=== PATIENT | female | born 1945 | race Caucasian/White ===

== ENCOUNTER → 2018-06-26 08:31 | Outpatient (CLI) | payer MEDICARE, OTHER, SELFPAY ==
[2018-06-26 09:42] LABS: BUN Creatinine Ratio 35.7 (6-22); Blood Urea Nitrogen 25 mg/dL (7-17); Calcium 9.4 mg/dL (8.4-10.2); Carbon Dioxide 29 mmol/L (22-32); Chloride 98 mmol/L (98-107); Cholesterol 243 mg/dL (140-199); Estimated Glomerular Filt Rate > 60.0 mL/min (>60); Glucose 87 mg/dL (80-110); HEMOLYSIS < 15 (0-50); Sodium 138 mmol/L (137-145); Triglycerides 58 mg/dL (35-150)
[2018-06-26 09:50] LABS: HDL Cholesterol 109 mg/dL (40-60); LDL Cholesterol Calculated 122 mg/dL (<100)
== END ==
PROVIDERS: PCP Internal Medicine; Visit Provider Internal Medicine
DX: Z00.00 Encounter for general adult medical examination without abnormal findings (principal); E78.5 Hyperlipidemia, unspecified
CPT/HCPCS: 36415; 80048; 80061

== ENCOUNTER → 2018-08-15 08:10 | Outpatient (CLI) | payer MEDICARE, OTHER, SELFPAY ==
--- NOTE | 2018-08-15 | DI.MRI.S_ITS ---
PROCEDURE: MR LUMBAR SPINE WO/W CON INDICATIONS: SOFT TISSUE MASS ON LOWER BACK TECHNIQUE: Noncontrast sagittal T1 spin echo and T2 fast spin echo, sagittal STIR, axial T1 and T2 fast spin echo through the lumbar spine. In cases with scoliosis, additional coronal T2 fast spin echo may be performed. After the administration of contrast, sagittal and axial T1 spin echo with fat saturation through the lumbar spine. COMPARISON: None. FINDINGS: Image quality: There are motion artifacts. Alignment and curvature: There is grade 1 anterolisthesis at L4-L5 and grade 1 retrolisthesis at L5-S1. Marrow: Degenerative endplate signal changes are present. No acute vertebral body compression fractures. No suspicious marrow enhancement. Spinal cord: Conus medullaris terminates at the L1-L2 level. Visualized spinal cord demonstrates normal signal, without suspicious enhancement. Paraspinous soft tissues: No mass is identified in the area of interest deep to the skin marker. No paravertebral masses or abnormal enhancement. There is extrarenal pelvis or hydronephrosis in left kidney. L1-L2: Normal appearance. L2-L3: Mild loss of disc height. Moderate disc desiccation. There is diffuse posterior disc bulge and disc osteophyte complex. The central canal is mildly narrowed. Moderate to severe bilateral foraminal stenosis. L3-L4: Mild loss of disc height. Moderate disc desiccation. There is diffuse posterior disc bulge and disc osteophyte complex. Mild bilateral facet arthropathy and moderate to severe hypertrophy of ligamentum flavum. The central canal is moderately narrowed. Moderate to severe bilateral foraminal stenosis. L4-L5: Mild loss of disc height. Moderate disc desiccation. There is diffuse posterior disc bulge and disc osteophyte complex. Superimposed posterior annular fissure. Severe bilateral facet arthropathy. The central canal is severely narrowed. Severe bilateral foraminal stenosis. L5-S1: Severe loss of disc height and disc desiccation. There is diffuse posterior disc bulge and disc extrusion. Moderate left and mild right facet arthropathy. The central canal is moderately narrowed. Moderate bilateral foraminal stenosis. IMPRESSION: 1. No soft tissue mass is identified deep to the skin marker in the area of interest. 2. Multilevel degenerative disc disease and facet arthropathy as described. 3. Multiple central canal stenosis as described, severe at L4-L5, moderate at L3-L4 and L5-S1. 4. Multilevel foraminal stenosis as described, severe at L4-L5 bilaterally, moderate to severe at L2-L3 bilaterally and L3-L4 bilaterally. 5. Extrarenal pelvis versus hydronephrosis in left kidney. Renal ultrasound is suggested for followup evaluation. Dictated by: Tatiana Ragsdale M.D. on 08/15/2018 at 10:34 Approved by: Tatiana Ragsdale M.D. on 08/15/2018 at 13:13
== END ==
PROVIDERS: PCP Internal Medicine; Visit Provider Internal Medicine
DX: R22.2 Localized swelling, mass and lump, trunk (principal); M51.36 Other intervertebral disc degeneration, lumbar region; M51.37 Other intervertebral disc degeneration, lumbosacral region; M47.816 Spondylosis without myelopathy or radiculopathy, lumbar region; M47.817 Spondylosis without myelopathy or radiculopathy, lumbosacral region; M48.061 Spinal stenosis, lumbar region without neurogenic claudication; M48.07 Spinal stenosis, lumbosacral region
CPT/HCPCS: 72158; A9579

== ENCOUNTER → 2018-08-25 12:07 | Outpatient (CLI) | payer MEDICARE, OTHER, SELFPAY ==
--- NOTE | 2018-08-25 | DI.US.S_ITS ---
PROCEDURE: US RENAL COMPLETE INDICATIONS: HYDRONEPHROSIS TECHNIQUE: Real-time scanning was performed of the kidneys and bladder, with image documentation. COMPARISON: [facility], MR, MR LUMBAR SPINE WO/W CON, 08/15/2018, 8:41. FINDINGS: Kidneys: Kidneys are normal in size. Right kidney measures 9.2 cm long; left kidney measures 12.5 cm long. Right renal cortical thickness is 1 cm; left renal cortical thickness is 13 cm. Renal cortical echotexture is normal. Several left-sided stones are seen, with the largest measuring 7 mm AP. There is a mild amount of left-sided hydronephrosis is seen, which are to resolves postvoid. No right-sided hydronephrosis. No suspicious solid mass lesions. A 1.7 cm simple appearing right renal cyst is incidentally noted. Bladder: Pre-void bladder volume is 214 mL. Post-void residual is 34 mL. Pre-void images demonstrate no intraluminal masses or stones. On pre-void images, both ureteral jets are noted with color Doppler interrogation. (Of note, ureteral jets may not be detectable in up to 25% of cases due to insufficient differences in specific gravity between ureteral and bladder urine). Miscellaneous: No free pelvic fluid. IMPRESSION: Mild left-sided hydronephrosis, which largely resolves postvoid. Several left-sided kidney stones are seen, with the largest superiorly measuring 7 mm. Moderate postvoid residual (34 cc). 1.7 cm right renal cyst incidentally noted. Dictated by: Tim Eddy M.D. on 08/25/2018 at 12:22 Approved by: Tim Eddy M.D. on 08/25/2018 at 12:25
== END ==
PROVIDERS: PCP Internal Medicine; Visit Provider Internal Medicine
DX: N13.30 Unspecified hydronephrosis (principal); N20.0 Calculus of kidney; N28.1 Cyst of kidney, acquired
CPT/HCPCS: 76770

== ENCOUNTER → 2018-12-11 08:23 | Outpatient (CLI) | payer MEDICARE, OTHER, SELFPAY ==
[2018-12-11 09:46] LABS: Alanine Aminotransferase 21 IU/L (9-52); Aspartate Aminotransferase 29 IU/L (14-36); Cholesterol 172 mg/dL (140-199); HDL Cholesterol 100 mg/dL (40-60); LDL Cholesterol Calculated 66 mg/dL (<100); Triglycerides 32 mg/dL (35-150)
== END ==
PROVIDERS: PCP Internal Medicine; Visit Provider Internal Medicine
DX: E78.5 Hyperlipidemia, unspecified (principal)
CPT/HCPCS: 36415; 80061; 84450; 84460

== ENCOUNTER 2020-01-09 22:43 | Emergency (ER) | payer MEDICARE, OTHER, SELFPAY ==
[2020-01-09 22:50] VITALS: BP 124/58; PULSE 71; RESP 17; TEMP 36.3; O2SAT 98; BMI 21.6
--- NOTE | 2020-01-09 22:50 | ED_ITS ---
HPI - Fall General Chief Complaint: Fall Stated Complaint: Syncope Time Seen by Provider: 01/09/20 22:43 Source: patient and EMS Mode of arrival: EMS Limitations: altered mental status History of Present Illness HPI Narrative: 74-year-old female former smoker with history of daily alcohol abuse presents by EMS for evaluation of a ground level fall with head injury. She does not take any blood thinners. She may have lost consciousness, she does not have full. She has had no vomiting but admits to nausea. She denies any chest pain or shortness of breath. She denies any abdominal pain or change in bowel habits. She has had no recent illness, new medications or dietary change. She does admit to some neck pain which seems to be worse with palpation or motion. She was placed in a C-collar prior to transport. MD complaint: fall Onset (ago): minute(s) Fall from: standing Fall witnessed: yes, by family Place fall occurred: home Loss of consciousness: unsure Prolonged down time: no Symptoms prior to fall: none Context: tripped/slipped and alcohol use Location of injury: head and neck Severity: moderate Associated symptoms (after fall): headache and neck pain Related Data Home Medications Medication Instructions Recorded Confirmed sertraline [Zoloft] 50 mg PO QDAY #0 09/16/10 [PROBIOTIC] 1 PO QDAY #0 07/17/17 calcium citrate 250 mg PO BID #0 07/17/17 cholecalciferol (vitamin D3) 2,000 unit PO BID #0 07/17/17 [Vitamin D3] lutein 6 mg PO EVERY OTHER DAY #0 07/17/17 scopolamine base 1 patch TOPICAL Q72H #0 07/17/17 Previous Rx's Medication Instructions Recorded metronidazole [Flagyl] 500 mg PO TID #42 tab 07/17/17 Allergies Allergy/AdvReac Type Severity Reaction Status Date / Time No Known Drug Allergies Allergy Verified 01/09/20 22:49 Review of Systems Constitutional Constitutional: Denies chills, Denies fatigue, Denies fever(s), Denies frequent falls, Reports headache(s), Denies lethargy and Denies weakness Eyes Eyes: Denies change in vision, Denies eye discharge, Denies irritation and Denies loss of vision ENT Ears, Nose, Mouth, and Throat: Denies change in voice, Denies dizziness, Reports headache(s), Reports neck pain, Denies sore throat and Denies throat swelling Cardiovascular Cardiovascular: Denies chest pain, Denies irregular heart rhythm, Denies lightheadedness, Denies palpitations, Denies dyspnea, Denies dyspnea on exertion and Denies orthopnea Respiratory Respiratory: Denies cough, Denies dyspnea, Denies dyspnea on exertion and Denies wheezing Gastrointestinal Gastrointestinal: Denies abdominal pain, Denies change in bowel habits, Denies diarrhea, Denies nausea and Denies vomiting Musculoskeletal Musculoskeletal: Reports neck pain and Denies numbness Integumentary/Breasts Skin/Breast: Denies pruritus, Denies erythema, Denies rash and Denies wounds Neurologic Neurologic: Denies behavioral changes, Denies confusion, Denies dizziness, Denies frequent falls, Reports headache(s), Denies loss of vision, Denies numbness and Denies weakness Psychiatric Psychiatric: Denies anxiety, Denies behavioral changes, Denies confusion, Denies depression, Denies homicidal ideation and Denies suicidal ideation Endocrine Endocrine: Denies fatigue, Denies flushing and Denies palpitations Hematologic/Lymphatic Hematologic/Lymphatic: Denies easy bruising Allergic/Immunologic Allergic/Immunologic: Denies urticaria, Denies throat swelling and Denies wheezing Patient History Social History Smoking Status: Former smoker Smoking Status: Former smoker alcohol intake frequency: 0-2 drinks per day Substance Use Type: does not use Exam Narrative Exam Narrative: GENERAL: [74] year old patient appears stated age. Well- nourished, well-developed patient, in mild distress. Confused, slow to respond but does so accurately, mild slurring of words HEAD: Laceration on occiput but with minimal active bleeding. No evidence of depressed skull fracture EYES: Pupils equal round and reactive. Extraocular motions intact. No scleral icterus. No injection or drainage. No hyphema ENT: No evidence of bleeding, no nasal septal hematoma. No purulent drainage. Throat without erythema, tonsillar hypertrophy or exudate. Airway patent. NECK: Trachea midline. Tenderness in the midline, no step-offs, crepitance or obvious deformity. CARDIOVASCULAR: Regular rate and rhythm without murmurs, gallops, or rubs. RESPIRATORY: Clear to auscultation. Breath sounds equal bilaterally. No wheezes, rales, or rhonchi. GASTROINTESTINAL: Abdomen soft, non-tender, nondistended. EXTREMITIES: No edema or joint tenderness. BACK: Nontender without deformity or crepitance. No flank tenderness. NEURO: Moving all extremities SKIN: No rash or erythema of visible areas Initial Vital Signs Initial Vital Signs: Vital Signs Temperature 97.4 F L 01/09/20 22:50 Pulse Rate 71 01/09/20 22:50 Respiratory Rate 17 01/09/20 22:50 Blood Pressure 124/58 L 01/09/20 22:50 Pulse Oximetry 98 01/09/20 22:50 Procedures Laceration Repair Laceration 1: Site: scalp Side (If applicable): right Size (cm): 3 Description: linear Depth: simple, single layer Local Anesthetic: lidocaine 1% and with epi Pre-repair: wound explored and irrigated extensively Skin layer closed with: paola Scores GCS Cherri coma scale eye opening: Spontaneous W[place]rop coma scale verbal response: Confused [place] coma scale motor response: Obey commands W[place]rop coma scale total score: 14 Course Orders Ordered: Discontinued Medications Diphtheria/Tetanus/Acell Pertussis (Adacel) 0.5 ml IM .ONCE ONE Stop: 01/09/20 22:48 Last Admin: 01/09/20 23:31 Dose: 0.5 ml Documented by: JAMAAL Sodium Chloride (Normal Saline 0.9%) 1,000 mls @ 125 mls/hr IV CONT JUDITH Last Infusion: 01/10/20 02:52 Dose: 0 mls/hr Documented by: Admin: 01/09/20 23:31 Dose: 125 mls/hr Documented by: JAMAAL Ondansetron HCl (Zofran) 4 mg IV NOW ONE Stop: 01/09/20 23:12 Last Admin: 01/09/20 23:31 Dose: 4 mg Documented by: JAMAAL MDM - Fall Lab Data Result diagrams: 01/09/20 22:30 01/09/20 22:30 Labs: Lab Results 01/09/20 01/09/20 01/10/20 Range/Units 22:30 22:30 00:56 WBC 7.1 (4.5-11.0) X10^3/uL RBC 4.22 (4.0-5.2) X10^6/uL Hgb 13.2 (12.0-16.0) g/dL Hct 39.6 (36-46) % MCV 94.0 (80-100) fL MCH 31.3 (26-34) PG MCHC 33.3 (30-36) % RDW 14.1 (11.6-14.8) % Plt Count 256 (150-400) X10^3/uL Neut % (Auto) 53.8 (50-75) % Lymph % (Auto) 35.1 (25-40) % Grand % (Auto) 8.8 (3-14) % Eos % (Auto) 1.7 L (2-4) % Baso % (Auto) 0.6 (0-2) % Neut # (Auto) 3800 (8798-6050) /uL Lymph # (Auto) 2500 (6353-4786) /uL Grand # (Auto) 600 (0-900) /uL Eos # (Auto) 100 (0-450) /uL Baso # (Auto) 0 (0-100) /uL Sodium 142 (137-145) mmol/L Potassium 3.6 (3.4-5.1) mmol/L Chloride 106 (98-107) mmol/L Carbon Dioxide 26 (22-32) mmol/L BUN 17 (7-17) mg/dL Creatinine 0.86 (0.52-1.04) mg/dL Estimated GFR > 60.0 (>60) mL/min BUN/Creatinine Ratio 19.8 (6-22) Glucose 95 (80-110) mg/dL Calcium 9.7 (8.4-10.2) mg/dL Magnesium 2.2 (1.6-2.3) mg/dL Total Bilirubin 0.5 (0.2-1.3) mg/dL AST 39 H (14-36) IU/L ALT 25 (<35) IU/L Alkaline Phosphatase 88 (38-126) U/L Total Creatine Kinase 79 (30-135) U/L CK-MB (CK-2) TNP CK-MB (CK-2) Rel Index TNP Troponin I < 0.012 (0.01-0.034) ng/mL Total Protein 7.8 (6.3-8.2) g/dL Albumin 4.8 (3.5-5.0) g/dL Globulin 3.0 (1.7-4.1) g/dL Albumin/Globulin Ratio 1.6 (1.0-2.8) Urine RBC 5-10/hpf H (0-5/HPF) Urine WBC None seen (0-5/HPF) Ur Squamous Epith Cells 1-5 /hpf (0-5/HPF) Urine Bacteria None seen (None) Ur Culture Indicated? Cult not indicated Urine Dip Bedside Urine Glucose Negative Bedside Urine Bilirubin - Negative Bedside Urine Ketone - Negative Urine Specific [place] 1.015 Bedside Urine Occult Blood +++ Bedside Urine pH 6.5 Bedside Urine Protein + 30 Bedside Urine Urobilinogen - Negative Bedside Urine Nitrite - Negative Bedside Urine Leukocytes - Negative Esterase Imaging Data CT scan - head: Radiologist's Impression: Chart Viewer Diagnostics DATE TYPE STATUS REF RANGE/AUTHOR Hx 01/09/20 22:49 Eden Ricardo 01/09/20 22:48 Eden Ricardo 08/25/18 00:00 Yen Eddye 08/15/18 00:00 Austyn Ragsdale Elaine D 74, F0 1945 [facility], Main ED 165.1cm 58.967kg BMI: 21.6kg/m? Fall Search Chart No Data to Display NF - Not included in interaction checking ONSET Today 02:53 Sissy Mortensen 74 F 1945 [place] [address] CT Scan Report Signed Patient: Ash Mortensenaine DMR#: [id number] : [id number]:[id number] Age/Sex: 74 / FDate of Service: 01/09/20 Loc: ED Accession Number: [id number] Procedure: CT head/brain wo con Ordering Provider: Jason Carty D.O. PROCEDURE: CT HEAD/BRAIN WO CON INDICATIONS: fall, head injury, chronic etoh, altered TECHNIQUE: Noncontrast 4.5 mm thick angled axial sections acquired from the foramen magnum to the vertex, with coronal and sagittal reformats. For radiation dose reduction, the following was used: automated exposure control, adjustment of mA and/or kV according to patient size. COMPARISON: None. FINDINGS: Image quality: Excellent. CSF spaces: Basal cisterns are patent. No extra-axial fluid collections. The ventricles are symmetric in size and shape. Brain: No intracranial bleeds or masses. There is cerebral volume loss for age, with resultant ventricular and sulcal prominence. There are periventricular and deep white matter chronic small vessel ischemic changes. There is intracranial internal carotid artery atherosclerosis. Skull and face: There is a small right frontal subgaleal hematoma. Calvarium and visualized facial bones appear intact, without suspicious lesions. Sinuses: Visualized sinuses and mastoids are clear. IMPRESSION: 1. No acute intracranial findings. 2. Small right frontal subgaleal hematoma without underlying calvarial abnormality. These findings are concordant with the overnight interpretation. Dictated by: Eden Ricardo M.D. on 01/10/2020 at 7:24 Approved by: Eden Ricardo M.D. on 01/10/2020 at 7:25 CT - cervical spine: Radiologist's Impression: Ash Mortensenaine Levi 74 F 1945 [place] [address] CT Scan Report Signed Patient: Sissy Mortensen DMR#: [id number] : [id number]:[id number] Age/Sex: 74 / FDate of Service: 01/09/20 Loc: ED Accession Number: [id number] Procedure: CT cervical spine wo con Ordering Provider: Jason Carty D.O. PROCEDURE: CT CERVICAL SPINE WO CON INDICATIONS: fall, altered, neck pain TECHNIQUE: Noncontrast 3 mm thick sections acquired from the skull base to the T4 level. Sagittal and coronal reformats were then constructed. For radiation dose reduction, the following was used: automated exposure control, adjustment of mA and/or kV according to patient size. COMPARISON: None. FINDINGS: Image quality: Excellent. Bones: No fractures or dislocations. Moderate degenerative changes are present throughout the cervical spine including intervertebral disc space narrowing and osteophytosis. Visualized superior ribs are intact. Soft tissues: Prevertebral soft tissues are normal in thickness. No paravertebral hematomas. No apical pneumothoraces. IMPRESSION: 1. No acute cervical spine injury. Moderate degenerative changes. These findings are concordant with the overnight interpretation. Dictated by: Eden Ricardo M.D. on 01/10/2020 at 7:17 Approved by: Eden Ricardo M.D. on 01/10/2020 at 7:24 Discharge Plan Departure Patient Disposition: Home Clinical Impression: Laceration of scalp Qualifiers: Encounter type: initial encounter Qualified Code(s): S01.01XA - Laceration without foreign body of scalp, initial encounter Contusion of forehead Qualifiers: Encounter type: initial encounter Qualified Code(s): S00.83XA - Contusion of other part of head, initial encounter Discharge Date/Time: 01/10/20 02:54 Instructions: How to Prevent Falls Activity Restrictions/Additional Instructions: Please keep the wound clean and dry to the best of your ability. Please monitor for signs of infection such as redness to the skin or increasing pain. Have the sutures removed by your doctor in about 7 days. If you are unable to get into your doctor, we would be happy to remove the sutures in that same timeframe. Prescriptions: No Action sertraline [Zoloft] 50 MG tablet 50 mg PO QDAY Qty: 0 RF: 0 calcium citrate 250 MG tablet 250 mg PO BID Qty: 0 RF: 0 cholecalciferol (vitamin D3) [Vitamin D3] 2,000 UNIT capsule 2,000 unit PO BID Qty: 0 RF: 0 lutein 10 mg tablet 6 mg PO EVERY OTHER DAY Qty: 0 RF: 0 [PROBIOTIC] 1 PO QDAY Qty: 0 RF: 0 scopolamine base 1 MG/3 DAYS patch 3 day 1 patch Topical Q72H Qty: 0 RF: 0 metronidazole [Flagyl] 500 MG tablet 500 mg PO TID Qty: 42 RF: 0 Referrals: Danay West MD [Primary Care Provider] -
[2020-01-09 22:54] LABS: Add Manual Diff / Slide Review NO; Basophils Absolute Auto 0 /uL (0-100); Basophils Percent Auto 0.6 % (0-2); Eosinophils Absolute Auto 100 /uL (0-450); Eosinophils Percent Auto 1.7 % (2-4); Hematocrit 39.6 % (36-46); Hemoglobin 13.2 g/dL (12.0-16.0); Lymphocytes Absolute Auto 2500 /uL (1100-4500); Lymphocytes Percent Auto 35.1 % (25-40); Mean Corpuscular HGB Conc 33.3 % (30-36); Mean Corpuscular Hemoglobin 31.3 PG (26-34); Monocytes Absolute Auto 600 /uL (0-900); Monocytes Percent Auto 8.8 % (3-14); Neutrophils Absolute Auto 3800 /uL (1500-7000); Neutrophils Percent Auto 53.8 % (50-75); Platelet Count 256 X10^3/uL (150-400); Red Blood Cell Count 4.22 X10^6/uL (4.0-5.2); Red Cell Distribution Width 14.1 % (11.6-14.8); White Blood Cell Count 7.1 X10^3/uL (4.5-11.0)
[2020-01-09 23:03] LABS: Alanine Aminotransferase 25 IU/L (<35); Albumin 4.8 g/dL (3.5-5.0); Albumin Globulin Ratio 1.6 (1.0-2.8); Alkaline Phosphatase 88 U/L (38-126); Aspartate Aminotransferase 39 IU/L (14-36); BUN Creatinine Ratio 19.8 (6-22); Bilirubin Total 0.5 mg/dL (0.2-1.3); Blood Urea Nitrogen 17 mg/dL (7-17); Calcium 9.7 mg/dL (8.4-10.2); Carbon Dioxide 26 mmol/L (22-32); Chloride 106 mmol/L (98-107); Creatine Kinase 79 U/L (30-135); Estimated Glomerular Filt Rate > 60.0 mL/min (>60); Glucose 95 mg/dL (80-110); HEMOLYSIS 20 (0-50); Magnesium 2.2 mg/dL (1.6-2.3); Potassium 3.6 mmol/L (3.4-5.1); Sodium 142 mmol/L (137-145); Total Protein 7.8 g/dL (6.3-8.2)
[2020-01-09 23:15] LABS: Troponin I < 0.012 ng/mL (0.01-0.034)
[2020-01-09] MEDS: SODIUM CHLORIDE 0.9% 1,000 ML 125 ML IV (23:31)
[2020-01-09] MEDS: TET,DIPH,PERTUSS(ACELL),VAC/PF 0.5 ML SYRINGE IM (23:31)
[2020-01-09] MEDS: ONDANSETRON 4 MG/2 ML INJ IV (23:31)
[2020-01-10 01:14] LABS: Bacteria Urine None Seen
[2020-01-10 01:22] LABS: Culture Indicated Urine Cult Not Indicated; RBC Urine 5-10/HPF (0-5/HPF); Squamous Epithelial Cell Urine 1-5 /HPF (0-5/HPF); WBC Urine None Seen (0-5/HPF)
[2020-01-10 02:53] VITALS: BP 104/55; PULSE 73; RESP 14; TEMP 36.6; O2SAT 97
== END 2020-01-10 02:54 | disposition home or self-care (01) ==
PROVIDERS: Emergency Provider Emergency Medicine; PCP Internal Medicine
DX: S01.01XA Laceration without foreign body of scalp, initial encounter (principal); R51 Headache; M54.2 Cervicalgia; R11.0 Nausea; W18.30XA Fall on same level, unspecified, initial encounter; Z23 Encounter for immunization
CPT/HCPCS: 12002; 70450; 72125; 80053; 81003; 81015; 82550; 82553; 83735; 84484; 85025; 90471; 93005; 93010; 96361; 96374; 99284; 90715; J2405

== ENCOUNTER → 2020-01-18 09:56 | Outpatient (CLI) | payer MEDICARE, OTHER, SELFPAY ==
[2020-01-18 11:14] LABS: Alanine Aminotransferase 18 IU/L (<35); Aspartate Aminotransferase 28 IU/L (14-36); Cholesterol 177 mg/dL (140-199); HDL Cholesterol 93 mg/dL (40-60); LDL Cholesterol Calculated 74 mg/dL (<100); Triglycerides 51 mg/dL (35-150)
== END ==
PROVIDERS: PCP Internal Medicine; Referring Provider Internal Medicine; Visit Provider Internal Medicine
DX: E78.5 Hyperlipidemia, unspecified (principal)
CPT/HCPCS: 36415; 80061; 84450; 84460

== ENCOUNTER → 2020-04-02 10:12 | Outpatient (CLI) | payer MEDICARE, OTHER, SELFPAY ==
[2020-04-02 10:46] LABS: COVID19 -Nasal RAPID Negative (Negative)
== END ==
PROVIDERS: PCP Internal Medicine; Visit Provider Physician Assistant
DX: Z11.59 Encounter for screening for other viral diseases (principal)
CPT/HCPCS: 87635

== ENCOUNTER 2020-04-05 06:02 | Day surgery (SDC) | payer MEDICARE, OTHER, SELFPAY ==
[2020-04-05] MEDS: PROPARACAINE 0.5% OPHTH SOL 2 DROPS EYE-OP (07:10)
[2020-04-05] MEDS: CATARACT EYE COMPOUND (10 DROPS/SYRINGE) 3 DROPS EYE-OP (07:11)
[2020-04-05 07:12] VITALS: BP 135/67; PULSE 69; RESP 16; TEMP 36.9; O2SAT 97; BMI 22.3
--- NOTE | 2020-04-05 07:38 | P.OP_ITS ---
Operative Date/Time/Diagnoses Pre-op diagnosis: Nuclear Cataract Left eye Post-op diagnosis: same Procedure & Clinicians Same procedure as scheduled: Yes Surgeon: Munir Byrd Anesthesia Type: MAC +/- and Sedation Operative Notes Procedure in detail: Patient brought to the operating suite. Tetracaine drops placed in the left eye. Patient was prepped and draped in sterile manner. Wire lid speculum was placed in the eye. Betadine drops were placed on the eye. This was irrigated. Lidocaine jelly was placed on the eye. A paracentesis port was created with a side-port blade. 0.1 mL 1% preservative free lidocaine was injected into the anterior chamber. The anterior chamber was deepened with viscoelastic. 2.6 mm keratome was used to create a temporal clear corneal incision. Cystotome and Utrata forceps were used to create continuous tear capsulorrhexis. Balanced salt solution was used to hydro dissect the nucleus. The phacoemulsification handpiece was inserted and the nucleus was removed using the stop and chop technique. The irrigation aspiration handpiece was inserted and the remaining cortex was removed. Anterior chamber was deepened with viscoe lastic. An Vargas ZCB00 intraocular lens with a power of 18.0 was injected into the capsular bag. Irrigation aspiration handpiece was inserted and the remaining viscoelastic was removed. Incision was hydrated with balanced salt solution and found to be leak free with pressure with Weck-Heather sponges. 0.1 mL Vigamox injected anterior chamber. 0.3 mL Kenalog 10 mg was injected subconjunctivally. Lid speculum was removed. The patient left the operating room in excellent condition. Complications: none Post-operative Condition: stable Disposition: same day surgery
--- NOTE | 2020-04-05 07:38 | PM.PREOP ---
Pre-operative Note Interval Note History & Physical reviewed/Exam performed by Physician: Yes Changes to H&P: No
[2020-04-05] MEDS: TRIAMCINOLONE 50 MG/5 ML VIAL INJ (07:54)
[2020-04-05] MEDS: PHENYLEPHRINE/LIDOCAINE VIAL (OR) 0.2 ML EYE-OP (07:54)
[2020-04-05] MEDS: CHONDROIDTIN/SOD HYALURONATE 1.05 ML SYRINGE INTRAOCULA (07:54)
[2020-04-05] MEDS: MOXIFLOXACIN INJ 5 MG/ML VIAL EYE-OP (07:54)
[2020-04-05] MEDS: TETRACAINE 0.5% OPHTH DROPS 4 ML 2 DROPS EYE-OP (07:55)
[2020-04-05] MEDS: LIDOCAINE JELLY 2% 5 ML 1 APPLIC TOP (07:55)
[2020-04-05] MEDS: BALANCED SALT IRRIG SOLN NO.2 500 ML, EPINEPHrine 1 MG IRR (07:55)
[2020-04-05 08:13] VITALS: BP 126/65; PULSE 55; RESP 18; TEMP 37; O2SAT 99
== END 2020-04-05 08:18 | disposition home or self-care (01) ==
PROVIDERS: PCP Internal Medicine; Referring Provider Internal Medicine; Visit Provider Ophthalmology
PROC: (CPT 66984; principal; 2020-04-05 07:45)
DX: H25.12 Age-related nuclear cataract, left eye (principal); G43.909 Migraine, unspecified, not intractable, without status migrainosus
CPT/HCPCS: 66984; J0171; J2250; J3301

== ENCOUNTER → 2020-04-16 14:41 | Outpatient (CLI) | payer MEDICARE, OTHER, SELFPAY ==
[2020-04-16 16:42] LABS: COVID19 -Nasal RAPID Negative (Negative)
== END ==
PROVIDERS: PCP Internal Medicine; Visit Provider Nurse Practitioner
DX: Z11.59 Encounter for screening for other viral diseases (principal)
CPT/HCPCS: 87635

== ENCOUNTER 2020-04-19 09:24 | Day surgery (SDC) | payer MEDICARE, OTHER, SELFPAY ==
[2020-04-19 10:05] VITALS: BP 115/6; PULSE 69; RESP 12; TEMP 36.7; O2SAT 100; BMI 22.3
[2020-04-19] MEDS: PROPARACAINE 0.5% OPHTH SOL 2 DROPS EYE-OP (10:05)
[2020-04-19] MEDS: CATARACT EYE COMPOUND (10 DROPS/SYRINGE) 3 DROPS EYE-OP (10:15)
--- NOTE | 2020-04-19 11:01 | PM.PREOP ---
Pre-operative Note Interval Note History & Physical reviewed/Exam performed by Physician: Yes Changes to H&P: No
--- NOTE | 2020-04-19 11:01 | PM.OP.1 ---
Operative Date/Time/Diagnoses Pre-op diagnosis: Nuclear cataract right eye Procedure & Clinicians Procedure: Cataract Surgery Same procedure as scheduled: Yes Surgeon: Munir Byrd Anesthesia Type: MAC +/- and Sedation Operative Notes Procedure in detail: Patient brought to the operating suite. Tetracaine drops placed in the right eye. Patient was prepped and draped in sterile manner. Wire lid speculum was placed in the eye. Betadine drops were placed on the eye. This was irrigated. Lidocaine jelly was placed on the eye. A paracentesis port was created with a side-port blade. 0.1 mL 1% preservative free lidocaine was injected into the anterior chamber. The anterior chamber was deepened with viscoelastic. 2.6 mm keratome was used to create a temporal clear corneal incision. Cystotome and Utrata forceps were used to create continuous tear capsulorrhexis. Balanced salt solution was used to hydro dissect the nucleus. The phacoemulsification handpiece was inserted and the nucleus was removed using the stop and chop technique. The irrigation aspiration handpiece was inserted and the remaining cortex was removed. Anterior chamber was deepened with viscoelastic. An Vargas ZCB00 intraocular lens with a power of 17.5 was injected into the capsular bag. Irrigation aspiration handpiece was inserted and the remaining viscoelastic was removed. Incision was hydrated with balanced salt solution and found to be leak free with pressure with Weck-Heather sponges. 0.1 mL Vigamox injected anterior chamber. 0.3 mL Kenalog 10 mg was injected subconjunctivally. Lid speculum was removed. The patient left the operating room in excellent condition. Complications: none Post-operative Condition: stable Disposition: same day surgery
[2020-04-19] MEDS: CHONDROIDTIN/SOD HYALURONATE 1.05 ML SYRINGE INTRAOCULA (11:36)
[2020-04-19] MEDS: MOXIFLOXACIN INJ 5 MG/ML VIAL EYE-OP (11:36)
[2020-04-19] MEDS: TRIAMCINOLONE 50 MG/5 ML VIAL INJ (11:36)
[2020-04-19] MEDS: PHENYLEPHRINE/LIDOCAINE VIAL (OR) 0.2 ML EYE-OP (11:36)
[2020-04-19] MEDS: TETRACAINE 0.5% OPHTH DROPS 4 ML 2 DROPS EYE-OP (11:37)
[2020-04-19] MEDS: BALANCED SALT IRRIG SOLN NO.2 500 ML, EPINEPHrine 1 MG IRR (11:37)
[2020-04-19] MEDS: LIDOCAINE JELLY 2% 5 ML 1 APPLIC TOP (11:37)
[2020-04-19 11:45] VITALS: BP 113/68; PULSE 59; RESP 12; TEMP 36.5; O2SAT 100
== END 2020-04-19 11:59 | disposition home or self-care (01) ==
PROVIDERS: PCP Internal Medicine; Referring Provider Ophthalmology; Visit Provider Ophthalmology
PROC: (CPT 66984; principal; 2020-04-19 11:15)
DX: H25.11 Age-related nuclear cataract, right eye (principal); E78.5 Hyperlipidemia, unspecified; F41.9 Anxiety disorder, unspecified
CPT/HCPCS: 66984; J0171; J2250; J3301

== ENCOUNTER → 2021-10-15 12:05 | Outpatient (CLI) | payer MEDICARE, OTHER, SELFPAY | PROVIDERS: PCP Internal Medicine; Visit Provider Physician Assistant | DX: R30.0 Dysuria (principal) | CPT/HCPCS: 87086 ==